=== PATIENT | female | born 1990 | race Caucasian/White ===

== ENCOUNTER 2018-07-31 19:18 | Emergency (ER) | payer BC ==
[~2018-07-31] VITALS: Ht 165.1 cm; Wt 92.1 kg
[~2018-07-31 19:18] MED LIST: NORCO 5-325 TA1 EACH PO
== END 2018-07-31 20:24 | disposition home or self-care (01) ==
LOC: ED 19:18
DX: S83.92XA Sprain of unspecified site of left knee, initial encounter (principal); Z90.49 Acquired absence of other specified parts of digestive tract; X58.XXXA Exposure to other specified factors, initial encounter
CPT/HCPCS: 73560; 99283

== ENCOUNTER 2024-09-27 19:11 | Emergency (ER) | payer OTHER ==
[~2024-09-27] VITALS: Ht 165.1 cm; Wt 110.4 kg
[~2024-09-27 19:11] MED LIST changes: +ASPIRIN325 MG PO; +CELECOXIB200 MG PO; +HYDROCODON-ACE1 EA11 PO
[2024-09-27 19:38] LABS: BLOOD/HGB, URINE NEGATIVE (Negative); KETONE, URINE SMALL (Negative); LEUK ESTERASE, URINE NEGATIVE (negative); NITRITE, URINE NEGATIVE (negative)
[2024-09-27 19:46] LABS: BASOPHILS 0.4 % (0.1-1.2); EOSINOPHILS 0.2 % (0.7-5.8); LYMPHOCYTES 9.6 % (19.3-51.7); MCH 30.1 PG (25.6-32.2); MCHC 34.6 g/dL (32.2-35.5); MCV 86.8 fL (79.4-94.8); MONOCYTES 9.3 % (4.7-12.5); NEUTROPHILS 80.2 % (34.0-71.1); RBC 4.79 M/uL (3.93-5.22)
[2024-09-27] MEDS ORDERED: TESTOSTERONE IM (19:53)
[2024-09-27] MEDS ORDERED: PROGESTERONE100 MG PO (19:53)
[2024-09-27] MEDS ORDERED: IRON18 M1 PO (19:54)
[2024-09-27] MEDS ORDERED: SODIUM CHLORIDE 0.9% 1,000 ML IV PRN (20:00)
[2024-09-27] MEDS ORDERED: ACETAMINOPHEN 500 MG TAB PO ONE (20:00)
[2024-09-27 20:02] LABS: ALT (SGPT) 22.0 U/L (14-59); AST (SGOT) 19.0 U/L (15-37); GLOMERULAR FILTRATION RATE,EST 71.0 mL/min (>60); PROTEIN, TOTAL 7.6 g/dL (6.4-8.2); UREA NITROGEN 16.0 mg/dL (7-18)
[2024-09-27 20:05] LABS: LACTIC ACID, BLOOD 0.7 mmol/L (0.4-2.0)
[2024-09-27 20:29] LABS: INFLUENZA B NAA NEGATIVE (NEGATIVE); RESPIRATORY SYNCYTIAL VIR NAA NEGATIVE (NEGATIVE)
[2024-09-27 21:39] VITALS: BP 114/62
== END 2024-09-27 21:39 | disposition home or self-care (01) ==
LOC: ED 19:11
PROVIDERS: Internal Medicine
DX: B34.9 Viral infection, unspecified (principal)
CPT/HCPCS: 36415; 71045; 80053; 81003; 83605; 85025; 87040; 87502; 96365; 99283-25; A9270; J0696; J7030; U0002